=== PATIENT | female | born 1945 | race Caucasian/White ===

== ENCOUNTER 2018-08-26 18:34 | Inpatient (IN) | payer OTHER ==
[~2018-08-26] VITALS: Ht 162.6 cm; Wt 79.9 kg
[~2018-08-26 18:34] MED LIST: ETOMIDATE 2MG/ML 10ML VIAL IV ONE; SODIUM CHLORIDE 0.9% 10ML VIAL ONE; VECURONIUM BROMIDE 10 MG/VIAL IV ONE
[2018-08-26] MEDS ORDERED: SODIUM CHLORIDE 0.9% 1000ML BAG (SEPSIS BOLUS) IV ONE (19:15)
[2018-08-26] MEDS ORDERED: PIPERACILLIN/TAZ 3.375G PREMIX 50 ML IV ONE (19:15)
[2018-08-26] MEDS ORDERED: VANCOMYCIN 1 G PREMIX 200 ML IV ONE (19:15)
[2018-08-26 19:55] LABS: CLARITY URINE CLEAR (CLEAR); COLOR URINE YELLOW (YELLOW); KETONES URINE TRACE (NEGATIVE); LEUKOCYTE ESTERASE URINE TRACE (NEGATIVE); NITRITE URINE NEGATIVE (NEGATIVE); OCCULT BLOOD URINE NEGATIVE (NEGATIVE); PH URINE 6.5 (4.5-8.0); PROTEIN URINE 2+ (NEGATIVE); SPECIFIC GRAVITY URINE 1.016 (1.005-1.030); UROBILINOGEN URINE 0.2 E.U./dL (0.2-1.0)
[2018-08-26] MEDS ORDERED: HALOPERIDOL LACTATE 5MG/ML VIAL IM ONE (20:00)
[2018-08-26 20:29] LABS: BASOPHILS % 0.6 % (0.0-2.0); EOSINOPHILS % 2.7 % (0.0-5.0); HEMATOCRIT. 36.9 % (36.0-48.0); HEMOGLOBIN. 11.6 g/dL (12.0-16.0); LYMPHOCYTES % 24.9 % (20.0-50.0); MEAN CORPUSCULAR HEMOGLOBIN 25.8 pg (28.0-32.0); MEAN CORPUSCULAR VOLUME 82.5 fL (81.0-99.0); MEAN PLATELET VOLUME 10.9 fl (7.4-10.4); MONOCYTES % 8.9 % (2.0-8.0); NEUTROPHILS % 62.9 % (40.0-76.0); PLATELET 104 x1000/uL (130-400); RED BLOOD CELL COUNT 4.47 mill/uL (4.2-5.4)
[2018-08-26 20:32] LABS: CHLORIDE 110 mEq/L (98-107)
[2018-08-26 20:34] LABS: INR 1.2; PROTHROMBIN TIME 11.7 sec (9.1-11.1)
[2018-08-26] MEDS ORDERED: DIPHENHYDRAMINE 50MG/ML VIAL IV PRN (22:15)
[2018-08-26] MEDS ORDERED: HYDROCODONE/ACETAMINOPHEN 10/325MG TABLET PO PRN (22:15)
[2018-08-26] MEDS ORDERED: ONDANSETRON HCL 4MG/2ML INJ IV PRN (22:15)
[2018-08-26] MEDS ORDERED: GUAIFENESIN 200MG/10ML SUGAR FREE UDC PO PRN (22:15)
[2018-08-26] MEDS ORDERED: LORAZEPAM 2MG/ML CPJ IV PRN (22:15)
[2018-08-26] MEDS ORDERED: MAGNESIUM/ALUMINUM HYDROXIDE/SIMETHICONE 30ML UDC PO PRN (22:15)
[2018-08-26] MEDS ORDERED: DOCUSATE SODIUM 100MG CAPSULE PO PRN (22:15)
[2018-08-26] MEDS ORDERED: IPRATROPIUM/ALBUTEROL 0.5-3(2.5)MG/3ML NEB INH PRN (22:15)
[2018-08-26] MEDS: DEXTROSE 5% WATER 1,000 ML IV SCH (22:30)
[2018-08-26] MEDS ORDERED: SODIUM CHLORIDE 0.45% 500 ML IV ONE (23:00)
[2018-08-26] MEDS ORDERED: NOREPINEPHRINE 4MG/250ML PMX 250 ML IV ONE (23:45)
[2018-08-27] VITALS (58 sets, daily range): BP systolic 86–191; BP diastolic 31–131
[2018-08-27] MEDS ORDERED: VANCOMYCIN 1 G PREMIX 200 ML IV SCH (04:00)
[2018-08-27 05:30] LABS: BASOPHILS % 0.2 % (0.0-2.0); EOSINOPHILS % 0.5 % (0.0-5.0); HEMATOCRIT. 31.9 % (36.0-48.0); HEMOGLOBIN. 10.2 g/dL (12.0-16.0); LYMPHOCYTES % 8.3 % (20.0-50.0); MEAN CORPUSCULAR HEMOGLOBIN 26.2 pg (28.0-32.0); MEAN CORPUSCULAR VOLUME 81.9 fL (81.0-99.0); MEAN PLATELET VOLUME 10.5 fl (7.4-10.4); MONOCYTES % 13.7 % (2.0-8.0); NEUTROPHILS % 77.3 % (40.0-76.0); PLATELET 99 x1000/uL (130-400); RED BLOOD CELL COUNT 3.89 mill/uL (4.2-5.4); RED CELL DISTRIBUTION WIDTH 16.1 % (11.6-14.6)
[2018-08-27 05:39] LABS: CHLORIDE 112 mEq/L (98-107)
[2018-08-27 05:48] LABS: CREATINE KINASE MB FRACTION 3.7 ng/mL (0.5-3.6); LDL CHOLESTEROL 41 mg/dL (5-100); T4 FREE 1.08 ng/dL (0.76-1.46)
[2018-08-27 05:49] LABS: HDL CHOLESTEROL 87 mg/dL (40-59)
[2018-08-27] MEDS ORDERED: PIPERACILLIN/TAZ 3.375G PREMIX 50 ML IV SCH (06:00)
[2018-08-27] MEDS: SODIUM CHLORIDE 0.9% INJ 3ML FLUSH IVF SCH ×2 (06:19→14:07)
[2018-08-27] MEDS ORDERED: HYDROMORPHONE HCL/PF 2MG/ML CPJ IV PRN (08:30)
[2018-08-27] MEDS ORDERED: ENOXAPARIN 40MG/0.4ML SYR SUBCUT SCH (09:00)
[2018-08-27] MEDS ORDERED: ASPIRIN 81MG EC TABLET PO SCH (09:00)
[2018-08-27] MEDS: PROPOFOL 10MG/ML 100ML 100 ML IV PRN ×2 (10:37→18:08)
[2018-08-27] MEDS: HYDRALAZINE 20MG/ML VIAL IV PRN (10:55)
[2018-08-27 11:09] LABS: BG BASE EXCESS 1.2 mmol/L (-2.0-2.0); BG CARBOXYHEMOGLOBIN 0.7 % (0.5-1.5); BG DEOXYHEMOGLOBIN 4.2 % (0.0-5.0); BG FRACTION INSPIRED OXYGEN 50; BG HCO3 ACT 25.3 mmol/L (22.0-26.0); BG METHEMOGLOBIN 0.2 % (0.0-1.5); BG OXYGEN SATURATION 95.8 % (92.0-98.5); BG OXYHEMOGLOBIN 94.9 % (94.0-97.0); BG PCO2 37.8 mmHg (35.0-45.0); BG PEEP (cmH2O) 0 cmH2O; BG PH 7.443 (7.350-7.450); BG PO2 79.9 mmHg (75.0-100.0); BG SAMPLE SITE RIGHT RADIAL; BG TIDAL VOLUME(mL) 500 mL; BG TOTAL HEMOGLOBIN 10.8 g/dL (12.0-18.0); BG VENT MODE VENT - A/C; BG VENT RATE 12 set
[2018-08-27] MEDS ORDERED: LIDOCAINE HCL 1% 20ML VIAL (Pyxis) INJ ONE (11:13)
[2018-08-27] MEDS: PIPERACILLIN/TAZ 3.375G PREMIX 50 ML IV SCH ×2 (12:28→18:05)
[2018-08-27] MEDS: DEXTROSE 5% WATER 1,000 ML IV SCH (12:30)
[2018-08-27] MEDS ORDERED: CARB-32 PO (16:06)
[2018-08-27] MEDS ORDERED: ROPI4TAB22 PO (16:07)
[2018-08-27] MEDS ORDERED: ROPI1TAB3 PO (16:11)
[2018-08-27 16:46] LABS: CREATINE KINASE MB FRACTION 2.7 ng/mL (0.5-3.6)
[2018-08-27] MEDS: PANTOPRAZOLE SODIUM 40 MG/VIAL IV SCH (18:05)
[2018-08-28] VITALS (97 sets, daily range): BP systolic 87–177; BP diastolic 44–100
[2018-08-28] MEDS ORDERED: VANCOMYCIN 750 MG PREMIX 150 ML IV SCH
[2018-08-28] MEDS: DEXTROSE 5% WATER 1,000 ML IV SCH (00:44)
[2018-08-28] MEDS: PROPOFOL 10MG/ML 100ML 100 ML IV PRN (05:19)
[2018-08-28] MEDS: PIPERACILLIN/TAZ 3.375G PREMIX 50 ML IV SCH ×5 (06:00→23:16)
[2018-08-28 08:01] LABS: BG BASE EXCESS 0.2 mmol/L (-2.0-2.0); BG CARBOXYHEMOGLOBIN 0.4 % (0.5-1.5); BG DEOXYHEMOGLOBIN 0.6 % (0.0-5.0); BG HCO3 ACT 24.6 mmol/L (22.0-26.0); BG METHEMOGLOBIN 0.3 % (0.0-1.5); BG OXYGEN SATURATION 99.4 % (92.0-98.5); BG OXYHEMOGLOBIN 98.7 % (94.0-97.0); BG PH 7.418 (7.350-7.450); BG SAMPLE SITE RIGHT RADIAL; BG TIDAL VOLUME(mL) 450 mL; BG TOTAL HEMOGLOBIN 10.9 g/dL (12.0-18.0); BG VENT MODE VENT - A/C; BG VENT RATE 12 set
[2018-08-28] MEDS: PANTOPRAZOLE SODIUM 40 MG/VIAL IV SCH (09:35)
[2018-08-28] MEDS: IPRATROPIUM/ALBUTEROL 0.5-3(2.5)MG/3ML NEB HHN SCH ×2 (12:21→21:00)
[2018-08-28] MEDS: SODIUM CHLORIDE 0.9% INJ 3ML FLUSH IVF SCH ×2 (12:48→22:00)
[2018-08-28] MEDS ORDERED: DILT120C61 MT (12:53)
[2018-08-28] MEDS: ROPINIROLE HCL 1MG TABLET NG SCH ×2 (14:30→21:54)
[2018-08-28] MEDS: CARBIDOPA/LEVODOPA 25/100MG TABLET NG SCH ×2 (14:30→21:54)
[2018-08-28 16:31] LABS: HEMATOCRIT. 30.3 % (36.0-48.0); HEMOGLOBIN. 9.8 g/dL (12.0-16.0); MEAN CORPUSCULAR HEMOGLOBIN 26.2 pg (28.0-32.0); MEAN CORPUSCULAR VOLUME 81.3 fL (81.0-99.0); MEAN PLATELET VOLUME 12.1 fl (7.4-10.4); PLATELET 78 x1000/uL (130-400); RED BLOOD CELL COUNT 3.72 mill/uL (4.2-5.4); RED CELL DISTRIBUTION WIDTH 16.5 % (11.6-14.6)
[2018-08-28] MEDS: VANCOMYCIN 1 G PREMIX 200 ML IV SCH ×2 (17:36)
[2018-08-28] MEDS ORDERED: POTASSIUM CHLORIDE INJ 40 MEQ in DEXT 5% WATER 250 ML IV SCH (18:30)
[2018-08-28 20:45] LABS: PLATELET ESTIMATE DECREASED
[2018-08-29] VITALS (95 sets, daily range): BP systolic 94–149; BP diastolic 41–96
[2018-08-29] MEDS: IPRATROPIUM/ALBUTEROL 0.5-3(2.5)MG/3ML NEB HHN SCH ×5 (02:12→20:12)
[2018-08-29] MEDS: PIPERACILLIN/TAZ 3.375G PREMIX 50 ML IV SCH ×4 (05:20→23:37)
[2018-08-29] MEDS: ROPINIROLE HCL 1MG TABLET NG SCH ×3 (05:20→21:06)
[2018-08-29] MEDS: CARBIDOPA/LEVODOPA 25/100MG TABLET NG SCH ×3 (05:20→21:06)
[2018-08-29] MEDS: SODIUM CHLORIDE 0.9% INJ 3ML FLUSH IVF SCH ×3 (05:21→21:07)
[2018-08-29 05:54] LABS: HEMATOCRIT. 28.9 % (36.0-48.0); HEMOGLOBIN. 9.3 g/dL (12.0-16.0); MEAN CORPUSCULAR VOLUME 80.8 fL (81.0-99.0); PLATELET 63 x1000/uL (130-400); RED BLOOD CELL COUNT 3.58 mill/uL (4.2-5.4); RED CELL DISTRIBUTION WIDTH 16.4 % (11.6-14.6)
[2018-08-29] MEDS: PANTOPRAZOLE SODIUM 40 MG/VIAL IV SCH (08:41)
[2018-08-29] MEDS ORDERED: MORPHINE SULFATE 4 MG/ML CPJ (NOT FOR IM USE) IV PRN (10:15)
[2018-08-29 10:53] LABS: PLATELET ESTIMATE DECREASED
[2018-08-29] MEDS ORDERED: POTASSIUM CHLORIDE INJ 40 MEQ in DEXT 5% WATER 250 ML IV NR (11:00)
[2018-08-29 11:54] LABS: BG BASE EXCESS 3.7 mmol/L (-2.0-2.0); BG CARBOXYHEMOGLOBIN 0.3 % (0.5-1.5); BG DEOXYHEMOGLOBIN 1.8 % (0.0-5.0); BG FRACTION INSPIRED OXYGEN 40; BG HCO3 ACT 27.6 mmol/L (22.0-26.0); BG METHEMOGLOBIN 0.3 % (0.0-1.5); BG OXYGEN SATURATION 98.2 % (92.0-98.5); BG OXYHEMOGLOBIN 97.6 % (94.0-97.0); BG PH 7.468 (7.350-7.450); BG PO2 132.3 mmHg (75.0-100.0); BG SAMPLE SITE RIGHT BRACHIAL; BG TIDAL VOLUME(mL) 450 mL; BG TOTAL HEMOGLOBIN 10.3 g/dL (12.0-18.0); BG VENT MODE VENT - A/C; BG VENT RATE 14 set
[2018-08-29] MEDS ORDERED: ERGOCALCIFEROL 8000UNITS/ML 60ML PO SCH ×2 (12:00→12:39)
[2018-08-29] MEDS: ACETYLCYSTEINE 100MG/ML 10% VIAL 4ML INH SCH (12:42)
[2018-08-29] MEDS: RACEPINEPHRINE 2.25% 0.5ML NEB VIAL HHN PRN (12:42)
[2018-08-29] MEDS: ACETAMINOPHEN 325MG TABLET PO PRN (21:06)
[2018-08-29] MEDS ORDERED: VANCOMYCIN 1 G PREMIX 200 ML IV SCH (22:00)
[2018-08-30] VITALS (87 sets, daily range): BP systolic 88–167; BP diastolic 44–115
[2018-08-30] MEDS: IPRATROPIUM/ALBUTEROL 0.5-3(2.5)MG/3ML NEB HHN SCH ×7 (00:27→23:47)
[2018-08-30] MEDS: ACETYLCYSTEINE 100MG/ML 10% VIAL 4ML INH SCH ×4 (00:27→23:47)
[2018-08-30] MEDS: ROPINIROLE HCL 1MG TABLET NG SCH ×3 (05:16→20:57)
[2018-08-30] MEDS: CLONIDINE 0.1MG TABLET PO PRN (05:16)
[2018-08-30] MEDS: CARBIDOPA/LEVODOPA 25/100MG TABLET NG SCH ×3 (05:16→20:57)
[2018-08-30] MEDS: SODIUM CHLORIDE 0.9% INJ 3ML FLUSH IVF SCH ×3 (05:17→20:57)
[2018-08-30] MEDS: PIPERACILLIN/TAZ 3.375G PREMIX 50 ML IV SCH ×2 (05:17→12:11)
[2018-08-30 08:35] LABS: BASOPHILS % 0.3 % (0.0-2.0); EOSINOPHILS % 1.1 % (0.0-5.0); HEMATOCRIT. 28.8 % (36.0-48.0); HEMOGLOBIN. 9.3 g/dL (12.0-16.0); LYMPHOCYTES % 10.2 % (20.0-50.0); MEAN CORPUSCULAR HEMOGLOBIN 25.8 pg (28.0-32.0); MEAN CORPUSCULAR VOLUME 80.5 fL (81.0-99.0); MONOCYTES % 13.6 % (2.0-8.0); NEUTROPHILS % 74.8 % (40.0-76.0); RED BLOOD CELL COUNT 3.58 mill/uL (4.2-5.4); RED CELL DISTRIBUTION WIDTH 16.1 % (11.6-14.6)
[2018-08-30] MEDS: PANTOPRAZOLE SODIUM 40 MG/VIAL IV SCH (09:08)
[2018-08-30] MEDS: AMLODIPINE 2.5MG TABLET NG SCH (09:09)
[2018-08-30 09:50] LABS: BG BASE EXCESS 1.8 mmol/L (-2.0-2.0); BG CARBOXYHEMOGLOBIN 0.3 % (0.5-1.5); BG DEOXYHEMOGLOBIN 1.4 % (0.0-5.0); BG FRACTION INSPIRED OXYGEN 40; BG HCO3 ACT 26.5 mmol/L (22.0-26.0); BG METHEMOGLOBIN 0.1 % (0.0-1.5); BG OXYGEN SATURATION 98.6 % (92.0-98.5); BG OXYHEMOGLOBIN 98.2 % (94.0-97.0); BG PCO2 42.1 mmHg (35.0-45.0); BG PH 7.417 (7.350-7.450); BG PO2 181.4 mmHg (75.0-100.0); BG PRESSURE SUPPORT 8; BG SAMPLE SITE RIGHT BRACHIAL; BG TOTAL HEMOGLOBIN 9.7 g/dL (12.0-18.0); BG VENT MODE VENT - CPAP
[2018-08-30 12:36] LABS: PLATELET 59 x1000/uL (130-400)
[2018-08-30] MEDS: CEFTRIAXONE 1 G PREMIX 50 ML IV SCH (17:30)
[2018-08-31] VITALS (72 sets, daily range): BP systolic 110–167; BP diastolic 63–119
[2018-08-31] MEDS: IPRATROPIUM/ALBUTEROL 0.5-3(2.5)MG/3ML NEB HHN SCH ×5 (04:23→20:39)
[2018-08-31] MEDS: CARBIDOPA/LEVODOPA 25/100MG TABLET NG SCH ×3 (05:40→21:06)
[2018-08-31] MEDS: SODIUM CHLORIDE 0.9% INJ 3ML FLUSH IVF SCH ×3 (05:40→21:06)
[2018-08-31] MEDS: ROPINIROLE HCL 1MG TABLET NG SCH ×3 (05:40→21:06)
[2018-08-31 05:50] LABS: BASOPHILS % 0.2 % (0.0-2.0); EOSINOPHILS % 2.3 % (0.0-5.0); HEMATOCRIT. 29.3 % (36.0-48.0); HEMOGLOBIN. 9.6 g/dL (12.0-16.0); LYMPHOCYTES % 11.7 % (20.0-50.0); MEAN CORPUSCULAR HEMOGLOBIN 26.5 pg (28.0-32.0); MEAN CORPUSCULAR VOLUME 81.3 fL (81.0-99.0); MONOCYTES % 11.1 % (2.0-8.0); NEUTROPHILS % 74.7 % (40.0-76.0); RED CELL DISTRIBUTION WIDTH 16.3 % (11.6-14.6)
[2018-08-31] MEDS: CLONIDINE 0.1MG TABLET PO PRN (07:06)
[2018-08-31 07:54] LABS: MEAN PLATELET VOLUME 11.4 fl (7.4-10.4); PLATELET 64 x1000/uL (130-400)
[2018-08-31] MEDS: ACETYLCYSTEINE 100MG/ML 10% VIAL 4ML INH SCH ×2 (07:59→15:18)
[2018-08-31] MEDS: AMLODIPINE 2.5MG TABLET NG SCH (09:05)
[2018-08-31] MEDS: PANTOPRAZOLE SODIUM 40 MG/VIAL IV SCH (09:05)
[2018-08-31] MEDS: ENTACAPONE 200MG TABLET PO SCH ×2 (13:53→21:06)
[2018-08-31 16:39] LABS: BG BASE EXCESS 1.8 mmol/L (-2.0-2.0); BG CARBOXYHEMOGLOBIN 0.5 % (0.5-1.5); BG DEOXYHEMOGLOBIN 1.4 % (0.0-5.0); BG FRACTION INSPIRED OXYGEN 40; BG HCO3 ACT 26.3 mmol/L (22.0-26.0); BG METHEMOGLOBIN 0.2 % (0.0-1.5); BG OXYGEN SATURATION 98.6 % (92.0-98.5); BG OXYHEMOGLOBIN 97.9 % (94.0-97.0); BG PCO2 40.7 mmHg (35.0-45.0); BG PH 7.428 (7.350-7.450); BG PO2 150.8 mmHg (75.0-100.0); BG PRESSURE SUPPORT 8; BG SAMPLE SITE RIGHT RADIAL; BG TOTAL HEMOGLOBIN 9.2 g/dL (12.0-18.0); BG VENT MODE VENT - CPAP
[2018-08-31] MEDS: CEFTRIAXONE 1 G PREMIX 50 ML IV SCH (18:21)
[2018-08-31] MEDS: RACEPINEPHRINE 2.25% 0.5ML NEB VIAL HHN PRN (21:45)
[2018-09-01] VITALS (38 sets, daily range): BP systolic 108–166; BP diastolic 51–128
[2018-09-01] MEDS: ACETYLCYSTEINE 100MG/ML 10% VIAL 4ML INH SCH ×3 (00:33→16:05)
[2018-09-01] MEDS: IPRATROPIUM/ALBUTEROL 0.5-3(2.5)MG/3ML NEB HHN SCH ×6 (00:34→21:25)
[2018-09-01] MEDS: HYDRALAZINE 20MG/ML VIAL IV PRN (00:51)
[2018-09-01] MEDS: ACETAMINOPHEN 325MG TABLET PO PRN (01:27)
[2018-09-01 05:08] LABS: BASOPHILS % 0.4 % (0.0-2.0); HEMATOCRIT. 30.1 % (36.0-48.0); HEMOGLOBIN. 9.7 g/dL (12.0-16.0); LYMPHOCYTES % 13.7 % (20.0-50.0); MEAN CORPUSCULAR HEMOGLOBIN 26.4 pg (28.0-32.0); MONOCYTES % 11.8 % (2.0-8.0); NEUTROPHILS % 70.1 % (40.0-76.0); RED BLOOD CELL COUNT 3.67 mill/uL (4.2-5.4); RED CELL DISTRIBUTION WIDTH 16.2 % (11.6-14.6)
[2018-09-01] MEDS: ENTACAPONE 200MG TABLET PO SCH ×3 (06:24→21:07)
[2018-09-01] MEDS: ROPINIROLE HCL 1MG TABLET NG SCH ×3 (06:25→21:07)
[2018-09-01] MEDS: CARBIDOPA/LEVODOPA 25/100MG TABLET NG SCH ×3 (06:25→21:07)
[2018-09-01] MEDS: SODIUM CHLORIDE 0.9% INJ 3ML FLUSH IVF SCH ×3 (06:25→21:08)
[2018-09-01 07:47] LABS: PLATELET 101 x1000/uL (130-400)
[2018-09-01 07:48] LABS: MEAN PLATELET VOLUME 11.2 fl (7.4-10.4)
[2018-09-01] MEDS: PANTOPRAZOLE SODIUM 40 MG/VIAL IV SCH (08:38)
[2018-09-01] MEDS: AMLODIPINE 2.5MG TABLET NG SCH (08:39)
[2018-09-01] MEDS: CEFTRIAXONE 1 G PREMIX 50 ML IV SCH (17:16)
[2018-09-01] MEDS: AMLODIPINE 5MG TABLET NG SCH (21:08)
[2018-09-02] VITALS (17 sets, daily range): BP systolic 104–167; BP diastolic 60–91
[2018-09-02] MEDS: IPRATROPIUM/ALBUTEROL 0.5-3(2.5)MG/3ML NEB HHN SCH ×6 (01:06→21:13)
[2018-09-02] MEDS: ACETYLCYSTEINE 100MG/ML 10% VIAL 4ML INH SCH ×3 (01:09→07:58)
[2018-09-02] MEDS: CLONIDINE 0.1MG TABLET PO PRN (02:33)
[2018-09-02] MEDS: HYDRALAZINE 20MG/ML VIAL IV PRN (04:18)
[2018-09-02] MEDS: ROPINIROLE HCL 1MG TABLET NG SCH ×3 (05:17→21:06)
[2018-09-02] MEDS: ENTACAPONE 200MG TABLET PO SCH ×3 (05:17→21:07)
[2018-09-02] MEDS: CARBIDOPA/LEVODOPA 25/100MG TABLET NG SCH ×3 (05:18→21:07)
[2018-09-02] MEDS: SODIUM CHLORIDE 0.9% INJ 3ML FLUSH IVF SCH ×3 (05:45→21:07)
[2018-09-02 05:52] LABS: BASOPHILS % 0.1 % (0.0-2.0); EOSINOPHILS % 5.3 % (0.0-5.0); HEMATOCRIT. 30.7 % (36.0-48.0); LYMPHOCYTES % 10.3 % (20.0-50.0); MEAN CORPUSCULAR HEMOGLOBIN 26.3 pg (28.0-32.0); MEAN CORPUSCULAR VOLUME 81.1 fL (81.0-99.0); MEAN PLATELET VOLUME 9.3 fl (7.4-10.4); MONOCYTES % 9.4 % (2.0-8.0); NEUTROPHILS % 74.9 % (40.0-76.0); PLATELET 130 x1000/uL (130-400); RED BLOOD CELL COUNT 3.79 mill/uL (4.2-5.4); RED CELL DISTRIBUTION WIDTH 16.1 % (11.6-14.6)
[2018-09-02 06:04] LABS: CHLORIDE 109 mEq/L (98-107)
[2018-09-02] MEDS: AMLODIPINE 5MG TABLET NG SCH ×2 (08:08→21:06)
[2018-09-02] MEDS: PANTOPRAZOLE SODIUM 40 MG/VIAL IV SCH (08:08)
[2018-09-02] MEDS: CEFTRIAXONE 1 G PREMIX 50 ML IV SCH (17:24)
[2018-09-03] VITALS (12 sets, daily range): BP systolic 70–179; BP diastolic 46–97
[2018-09-03] MEDS: IPRATROPIUM/ALBUTEROL 0.5-3(2.5)MG/3ML NEB HHN SCH ×6 (01:48→20:57)
[2018-09-03] MEDS: ROPINIROLE HCL 1MG TABLET NG SCH ×3 (05:45→20:49)
[2018-09-03] MEDS: ENTACAPONE 200MG TABLET PO SCH ×2 (05:45→14:14)
[2018-09-03] MEDS: CARBIDOPA/LEVODOPA 25/100MG TABLET NG SCH ×3 (05:45→20:49)
[2018-09-03] MEDS: SODIUM CHLORIDE 0.9% INJ 3ML FLUSH IVF SCH ×3 (05:46→20:51)
[2018-09-03] MEDS: AMLODIPINE 5MG TABLET NG SCH ×2 (08:42→20:44)
[2018-09-03] MEDS: PANTOPRAZOLE SODIUM 40 MG/VIAL IV SCH (08:42)
[2018-09-03] MEDS: ACETYLCYSTEINE 100MG/ML 10% VIAL 4ML INH SCH ×2 (09:22→16:21)
[2018-09-03 16:24] LABS: BG BASE EXCESS 1.4 mmol/L (-2.0-2.0); BG CARBOXYHEMOGLOBIN 0.8 % (0.5-1.5); BG DEOXYHEMOGLOBIN 6.8 % (0.0-5.0); BG HCO3 ACT 25.3 mmol/L (22.0-26.0); BG METHEMOGLOBIN 0.1 % (0.0-1.5); BG OXYGEN SATURATION 93.1 % (92.0-98.5); BG OXYHEMOGLOBIN 92.3 % (94.0-97.0); BG PCO2 37.2 mmHg (35.0-45.0); BG PH 7.451 (7.350-7.450); BG PO2 69.2 mmHg (75.0-100.0); BG SAMPLE SITE RIGHT RADIAL; BG TOTAL HEMOGLOBIN 9.3 g/dL (12.0-18.0); BG VENT MODE ROOM AIR
[2018-09-03] MEDS: CEFTRIAXONE 1 G PREMIX 50 ML IV SCH (17:23)
[2018-09-04] VITALS (11 sets, daily range): BP systolic 87–167; BP diastolic 57–97
[2018-09-04] MEDS: IPRATROPIUM/ALBUTEROL 0.5-3(2.5)MG/3ML NEB HHN SCH ×5 (00:41→16:22)
[2018-09-04] MEDS: HYDRALAZINE 20MG/ML VIAL IV PRN (02:31)
[2018-09-04] MEDS: ROPINIROLE HCL 1MG TABLET NG SCH ×2 (05:02→14:59)
[2018-09-04] MEDS: SODIUM CHLORIDE 0.9% INJ 3ML FLUSH IVF SCH ×2 (05:02→15:01)
[2018-09-04] MEDS: CARBIDOPA/LEVODOPA 25/100MG TABLET NG SCH ×2 (05:02→15:00)
[2018-09-04 06:37] LABS: BASOPHILS % 0.2 % (0.0-2.0); EOSINOPHILS % 2.9 % (0.0-5.0); HEMATOCRIT. 29.3 % (36.0-48.0); HEMOGLOBIN. 9.7 g/dL (12.0-16.0); LYMPHOCYTES % 11.7 % (20.0-50.0); MEAN CORPUSCULAR HEMOGLOBIN 26.9 pg (28.0-32.0); MEAN CORPUSCULAR VOLUME 81.3 fL (81.0-99.0); MEAN PLATELET VOLUME 8.7 fl (7.4-10.4); MONOCYTES % 10.5 % (2.0-8.0); NEUTROPHILS % 74.7 % (40.0-76.0); PLATELET 277 x1000/uL (130-400); RED CELL DISTRIBUTION WIDTH 15.8 % (11.6-14.6)
[2018-09-04 06:48] LABS: CHLORIDE 110 mEq/L (98-107)
[2018-09-04] MEDS: AMLODIPINE 5MG TABLET NG SCH (10:15)
[2018-09-04] MEDS: PANTOPRAZOLE SODIUM 40 MG/VIAL IV SCH (10:33)
[2018-09-04] MEDS ORDERED: CEFTRIAXONE 1,000 MG in DEXTROSE 5% WATER 50 ML IV SCH (18:00)
== END 2018-09-04 21:10 | disposition short-term general hospital (02) | DRG 870 ==
LOC: ER 18:34 → MICUSO 20:47 → EDBEDREQTM 20:49 → EDBEDREQ 20:49 → EDBEDREQSVC 08-27 00:26 → ENRESERV 08-27 07:24 → 5EST 09-02 09:06
PROVIDERS: ADMIT Internal Medicine; ATTEND Internal Medicine
PROC: 5A1955Z Respiratory Ventilation, Greater than 96 Consecutive Hours (ICD-10-PCS; principal; 2018-08-27)
PROC: 0BH17EZ Insertion of Endotracheal Airway into Trachea, Via Natural or Artificial Opening (ICD-10-PCS; 2018-08-27)
PROC: 02HV33Z Insertion of Infusion Device into Superior Vena Cava, Percutaneous Approach (ICD-10-PCS; 2018-08-27)
PROC: B548ZZA Ultrasonography of Superior Vena Cava, Guidance (ICD-10-PCS; 2018-08-27)
PROC: 4A00X4Z Measurement of Central Nervous Electrical Activity, External Approach (ICD-10-PCS; 2018-08-28)
DX: A41.9 Sepsis, unspecified organism (principal); G93.41 Metabolic encephalopathy; J96.00 Acute respiratory failure, unspecified whether with hypoxia or hypercapnia; R65.21 Severe sepsis with septic shock; E44.1 Mild protein-calorie malnutrition; I50.42 Chronic combined systolic (congestive) and diastolic (congestive) heart failure; R04.2 Hemoptysis; I11.0 Hypertensive heart disease with heart failure; D64.9 Anemia, unspecified; D69.6 Thrombocytopenia, unspecified; E86.0 Dehydration; G20 Parkinson's disease; D32.9 Benign neoplasm of meninges, unspecified; I27.20 Pulmonary hypertension, unspecified; E87.6 Hypokalemia; J45.909 Unspecified asthma, uncomplicated; R74.0 Nonspecific elevation of levels of transaminase and lactic acid dehydrogenase [LDH]; Z68.30 Body mass index [BMI] 30.0-30.9, adult
CPT/HCPCS: 36415; 36569; 36600; 70551; 71045; 76937; 80048; 80061; 80202; 82140; 82375; 82550; 82553; 82805; 82962; 83605; 84145; 84439; 84443; 84478; 84484; 92610; 93005; 93306; 93970; 94002; 94003; 94640; 96365; 96366; 96368; 96372; 97162; 97167; 97530; 97535; 99291; A6261; C1725; C9113; J0360; J0696; J1630; J2060; J2543; J2704; J3370; J3480; J3490; J7030; J7040; J7050; J7060; J7070; J7608; J7620